=== PATIENT | female | born 1980 | race Caucasian/White ===

== ENCOUNTER → 2021-10-03 | Outpatient (REF) ==
--- NOTE | 2021-10-03 09:22 | Diagnostic Imaging Report ---
INDICATION: Back injury. AP and lateral views of lumbar spine shows normal vertebral body height and alignment. Disc spaces are normal. IMPRESSION: Negative lumbar spine. Dictated by: Dictated on workstation # [id number]
== END ==
LOC: OCC 08:46
PROVIDERS: ATTEND Family Medicine
DX: S39.92XA Unspecified injury of lower back, initial encounter (principal); X58.XXXA Exposure to other specified factors, initial encounter
CPT/HCPCS: 72100

== ENCOUNTER → 2022-08-17 | Outpatient (REF) ==
--- NOTE | 2022-08-17 09:45 | Diagnostic Imaging Report ---
CLINICAL INDICATION: Patient states she hit her head at forehead level. Patient states having vision problems. Dizziness and balance issues since hitting head. EXAM: X-ray of the skull, multiple views. COMPARISON: None. FINDINGS AND IMPRESSION: 1: There is no craniofacial fracture. The nasal bone is intact. Of note, x-rays of the skull have low sensitivity for subtle craniofacial fractures. If there is continued concern, CT scan would better evaluate. 2: The visualized paranasal sinuses are grossly unremarkable. Dictated by: Dictated on workstation # [id number]
== END | disposition home or self-care (01) ==
LOC: OCC 08:56
PROVIDERS: ATTEND Family Medicine
DX: Z01.818 Encounter for other preprocedural examination (principal)
CPT/HCPCS: 70250